=== PATIENT | female | born 1980 | race Hispanic/Latino ===

== ENCOUNTER 2019-11-28 07:08 | Outpatient (CLI) | payer OTHER ==
--- NOTE | 2019-11-28 07:36 | ULT ---
Sonogram right upper quadrant HISTORY: Right upper quadrant pain. FINDINGS: Large shadowing stone is present within the gallbladder lumen. There is no gallbladder wall thickening or pericholecystic fluid. Common bile duct is 0.5 cm. Liver unremarkable without focal mass or intrahepatic biliary dilatation. No free fluid. IMPRESSION : Cholelithiasis. No evidence of acute biliary obstruction.
== END 2019-11-28 07:09 | disposition home or self-care (01) ==
LOC: BICULT 07:08
PROVIDERS: ATTEND Nurse Practitioner Family
DX: R10.13 Epigastric pain (principal); K80.20 Calculus of gallbladder without cholecystitis without obstruction
CPT/HCPCS: 76705